=== PATIENT | female | born 1985 | race Caucasian/White ===

== ENCOUNTER 2021-10-17 05:40 | Day surgery (SDC) | payer OTHER ==
[~2021-10-17] VITALS: Ht 165.1 cm; Wt 78.2 kg
[~2021-10-17 05:40] MED LIST: LEVOTHYROXINE150 MC1 PO
--- NOTE | 2021-10-17 09:55 | NUR ---
10/17/21 0955 Amanda Garrett 0920-PT TO PACU IN SUPINE POSITION. PT RESPONSIVE BUT DOES NOT FOLLOW COMMANDS. ORAL AIRWAY IN PLACE. BREATHING EASY AND UNLABORED. SPO2 >95% ON 8 L O2 VIA SIMPLE MASK. 0923- PT RESPONDS TO VERBAL AND TACTILE STIMULI. PT FOLLOWS COMMANDS. ORAL AIRWAY REMOVED. BREATHING EASY AND UNLABORED. SPO2 >95% ON 6 L O2 VIA SIMPLE MASK. 0930- PT AWAKEN ON AND OFF. BREATHING EASY AND UNLABORED. SPO2 >95%. O2 TITRATED DOWN TO ROOM AIR. PT REQUESTING HOB LOWERED. PT ENCORUAGED TO TAKE DEEP BREATHS. 0938- LAB AT BEDSIDE TO DRAW HEMOGRAM. PT TALKING WITH MD. BREATHING EASY AND UNLABORED. SPO2 >95% ON ROOM AIR. PT REPORTS PAIN 5/10 CRAMPY. PT REQUESTING TYLENOL. PT EDUCATED ABOUT PONV AND POC FOR PACU 0947- PT AWAKE ON AND OFF. BREATHING EASY AND UNLABORED. SPO2 >95% ON ROOM AIR. PT REQUESTING WATER. 0955-PT TOLERATING PO WELL. PT REQUESTING MORE WATER. PT SLEEPING ON AND OFF. SPO2 >95% ON ROOM AIR.
--- NOTE | 2021-10-17 10:14 | NUR ---
PATIENT IS DROWSY. IVF INFUSING. IV SITE IS PATENT. PATIENT COMPLAINS OF PAIN 4/10 CRAMPING AT SURGICAL SITE. RENNY PAD CLEAN, DRY AND INTACT. BREATHING EQUAL AND UNLABORED. OXYGEN SATURATIONS ARE ABOVE 95%. PATIENT IS DRINKING WATER. AT BEDSIDE. NO QUESTIONS AT THIS TIME. CALL LIGHT WITHIN REACH NO FUTHER NEEDS.
--- NOTE | 2021-10-17 11:00 | NUR ---
PT RESTING IN BED AND AT BEDSIDE, PT GRIMACING AND REPORTS CRAMPING PAIN 4-10. PAIN MEDICATION GIVEN. HEAT PACK GIVEN PER REQUEST, EDUCATION GIVEN. PT DENIES ANY OTHER CONCERNS AT THIS TIME.
--- NOTE | 2021-10-17 11:51 | NUR ---
1135-PATIENT UP TO RESTROOM WITH 1 RN ASSIST. GAIT STEADY. PATIENT TOLERATED WELL. PATIENT VOIDED 300ML. 1140-PATIENT BACK TO ROOM. PATIENT LAYING ON LEFT SIDE. RESP EVEN AND UNLABORED. RATES PAIN 3/10. DENIES NAUSEA. SMALL AMOUNT OF RED DRAINAGE. PATIENT HAS RENNY PAD IN PLACE. PARTNER AT BEDSIDE.
--- NOTE | 2021-10-17 12:46 | NUR ---
PT UP ON EDGE OF BED, PT REPORT NAUSEA. MEDICATION GIVEN. VSS. PT REQUEST TO LAY BACK DOWN. PLAN OF CARE DISUCSSED.
--- NOTE | 2021-10-17 12:47 | NUR ---
PT REPORTS FEELING BETTER AFTER LAYING DOWN. EMESIS BAG GIVEN.
--- NOTE | 2021-10-17 13:19 | NUR ---
DC INSTRUCTIONS GIVEN, HOB INCREASED. PT EATING CRACKERS PER REQUEST. PT REPORTS READINESS TO DC. PT GETTING DRESSED AND REPORTS "I FEEL MUCH BETTER." PAPERWORK WITH RX GIVEN AND ALL QUESTIONS ANSWERED.
--- NOTE | 2021-10-17 13:30 | NUR ---
PT DC VIA WC WITH ALL BELONGINGS. PAPERWORK AND RX WITH .
--- NOTE | 2021-10-20 07:48 | OR ---
[facility] [place] [facility] [address] [place], [place] [address] Signed DATE OF OPERATION: 10/17/2021 SURGEON: Galina Jose MD PREOPERATIVE DIAGNOSIS: Cervical intraepithelial neoplasia 3. POSTOPERATIVE DIAGNOSIS: Cervical intraepithelial neoplasia 3, pending pathology. PROCEDURE: Cone biopsy with endocervical curettage. ANESTHESIA: General LMA. ESTIMATED BLOOD LOSS: 300 mL. DRAINS: None. INDICATIONS AND FINDINGS: The patient is a 36-year-old female, who was recently diagnosed with CECILIA 3 with a positive ECC on colposcopy after an abnormal Pap smear. At the time of surgery, exam under anesthesia revealed a normal-size uterus and no adnexal masses. On Lugol's staining, there was nonstaining area posteriorly, but otherwise everything appeared normal. DESCRIPTION OF PROCEDURE: The patient was prepped and draped in the dorsal lithotomy position. An open-sided speculum was placed. Angle sutures of 0 chromic were placed in a tkwity-ch-xatik manner at 3 and 9 o'clock. The cervix was then stained with Lugol's. There was a nonstaining area posteriorly. The anterior lip was grasped with a tenaculum. The knife was then used to circumscribe the cervix from 3 o'clock counterclockwise to 3 o'clock. The specimen was removed sharply and marked at the 12 o'clock position. Following this, bleeding points were treated with cautery with some improvement in the bleeding. There was some brisk bleeding inferiorly at approximately 4 o'clock and uzmigt-ni-twxch sutures using the 0 chromic were placed with improvement in this bleeding. ECC was then done with a small amount of tissue found and sent separately. There continued to be Electronically Signed By: GALINA JOSE MD 10/20/21 0748 PATIENT NAME: MANUEL VALENZUELA OPERATIVE REPORT DATE OF : [birth year] REPORT #: [id number] PHYSICIAN: GALINA JOSE MD PCP: DANYEL GLOVER MD REPORT IS CONFIDENTIAL AND NOT TO BE RELEASED WITHOUT AUTHORIZATION [facility] [place] [facility] [address] [facility] [place] [address] Signed some bleeding near the 9 o'clock position on the cervix, which was not really responding well to cautery. Several zttukl-mi-drhpx sutures were placed in this area using the 0 chromic, again with marginal control of bleeding. Additional lkvqsx-yy-dohpl sutures were placed at the 3 and 9 o'clock and these were placed a little bit more deeply to help control the paracervical vessels. A ghjmhy-se-vsqaq was placed at 12 o'clock and 6 o'clock as well. Following this, there continued to be some bleeding and blanket suture was done circumferentially around the entire cervix. At this point, hemostasis was significantly improved. The base was treated with Monsel's solution. Because of the difficulty controlling the bleeding, FloSeal was also placed at the base of the cone and this was followed by Gel-Foam. This was held in place with a suture from 12 to 6 o'clock placed superficially with a 0 chromic. Following this, observation was continued. There was no evidence of any ongoing bleeding. The procedure was terminated with removal of the instruments. The patient was taken to the recovery room in good condition. She remained stable throughout the whole procedure. All sponge and needle counts were correct. Galina Jose MD PJW/MODL /[id number] cc: [facility] Copies: ~ Electronically Signed By: GALINA JOSE MD 10/20/21 0748 PATIENT NAME: MANUEL VALENZUELA OPERATIVE REPORT DATE OF : [birth year] REPORT #: [id number] PHYSICIAN: GALINA JOSE MD PCP: DANYEL GLOVER MD REPORT IS CONFIDENTIAL AND NOT TO BE RELEASED WITHOUT AUTHORIZATION
--- NOTE | 2021-10-27 15:39 | PATH ---
[facility] [address] [place], [place] [address] Signed SPECIMEN(S): A ENDOCERVICAL CURETTINGS SPECIMEN(S): B CERVICAL CONE BIOPSY SPECIMEN SOURCE: A. ENDOCERVICAL CURETTINGS B. CERVICAL CONE BIOPSY CLINICAL HISTORY: Abnormal Pap, colposcopy with biopsy revealed CECILIA 3 with + ECC. Carcinoma in situ of ectocervix. FINAL PATHOLOGIC DIAGNOSIS: A. Endocervix, curettage: - Endocervical mucosa, detached endocervical glands, and squamous epithelium with no histopathologic abnormality. - Rare, detached proliferative appearing endometrial glands. B. Cervix, cone biopsy: - High-grade squamous intraepithelial lesion (HSIL, CECILIA 3) with foci suspicious for superficial stromal invasion, see Comment. - HSIL is focally present at inked/cauterized ectocervical margin. - Endocervical margin negative for dysplasia. COMMENT: Regarding specimen B: Foci are identified which are highly suspicious for superficial/early stromal invasion. This case will be sent to [facility] for consultation regarding this finding and the results reported in an addendum. NAL:cml:C1NR MICROSCOPIC EXAMINATION: Histologic sections of all submitted blocks are examined by light microscopy. These findings, together with the gross examination, support the pathologic diagnosis. GROSS DESCRIPTION: Two specimens are received in two containers, labeled "KA." A. The specimen, labeled "KA, A," and designated on the requisition "ECC," is received in formalin and consists of multiple fragments of brown-cintron soft tissue (2.0 x 0.3 x 0.1 cm in aggregate). The specimen is submitted entirely in cassette A1. PATIENT NAME: MANUEL VALENZUELA PATHOLOGY DATE OF : [birth year] REPORT #: [id number] PHYSICIAN: MARISABEL OSBORNE PCP: DANYEL GLOVER MD REPORT IS CONFIDENTIAL AND NOT TO BE RELEASED WITHOUT AUTHORIZATION [facility] [address] [place], [place] [address] Signed B. The specimen, labeled "KA, B," and designated on the requisition "cervix, suture pham 12 o'clock," is received in formalin and consists of a cervical cone (2.0 x 2.0 x 1.4 cm) with red-pink cervical mucosa and a stitch marking 12 o'clock. The ectocervical edge is inked black and the stromal margin is inked blue. The specimen is radially sectioned and submitted entirely as follows: (B1) 12 o'clock to 3 o'clock (B2) 3 o'clock to 6 o'clock (B3) 6 o'clock to 9 o'clock (B4) 9 o'clock to 12 o'clock AC (under the direct supervision of a pathologist) The Gross Description was prepared using a voice recognition system. The report was reviewed for accuracy; however, sound-alike word errors, addition and/or deletions may occur. If there is any question about this report, please contact Client Services. PERFORMING LABORATORY: The technical component was performed by [facility] [address] (CLIA# [id number]). [facility], [address] [facility] [address] [address] (CLIA# [id number]). Diagnostician: Susy Castro MD Pathologist Electronically Signed 10/27/2021 Copies: ~ PATIENT NAME: MANUEL VALENZUELA PATHOLOGY DATE OF : [birth year] REPORT #: [id number] PHYSICIAN: MARISABEL PATHOLOGY PCP: DANYEL GLOVER MD REPORT IS CONFIDENTIAL AND NOT TO BE RELEASED WITHOUT AUTHORIZATION
== END 2021-10-17 13:30 | disposition home or self-care (01) ==
LOC: DS 05:40
PROVIDERS: ATTEND Obstetrics & Gynecology
PROC: 0UBC7ZX Excision of Cervix, Via Natural or Artificial Opening, Diagnostic (ICD-10-PCS; principal; 2021-10-17 07:30)
DX: D06.1 Carcinoma in situ of exocervix (principal)
CPT/HCPCS: 36415; 85027; A9270; J0131; J1100; J1885; J2001; J2405; J2704; J2765; J3010; J7121

== ENCOUNTER 2021-12-03 06:00 | Day surgery (SDC) | payer OTHER ==
[~2021-12-03] VITALS: Ht 165.1 cm; Wt 76.4 kg
--- NOTE | ~2021-12-03 | OR ---
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 PROCEDURE: Repeat shallow cone biopsy. ANESTHESIA: General LMA. ESTIMATED BLOOD LOSS: 20 mL. DRAINS: None. INDICATIONS AND FINDINGS: The patient is a 36-year-old female, who underwent a cone biopsy about seven weeks ago for CIS with a positive ECC. On that specimen, there was a positive exocervical margin as well as thus probable microinvasion. She is having this repeated now to be sure margins are clear and that there is no invasive cancer as this would change her management. At the time of surgery, her exam under anesthesia revealed an irregular cervix consistent with her prior cone and was well healed. There was a rim of nonstaining exocervix particularly posteriorly. DESCRIPTION OF PROCEDURE: The patient was prepped and draped in the dorsal lithotomy position. An open-sided speculum was placed and then stay sutures of 0 chromic were placed at 3 and 9 o'clock in a ufpgsz-na-nfjtt manner. Following this, Lugol solution was used to stain the cervix. The anterior cervix was grasped with a single-tooth tenaculum. The knife was used to remove the exocervix fairly shallowly. The specimen did tear at 7 o'clock and this was sent separately. The specimen was obtained from 1 to 6 o'clock as well as from 7 to 12 o'clock. The base of the cone was treated with cautery. This was followed by [facility] PATIENT NAME: MANUEL VALENZUELA OPERATIVE REPORT DATE OF : [birth year] REPORT #: [id number] PHYSICIAN: GALINA JOSE MD PCP: DANYEL GLOVER MD REPORT IS CONFIDENTIAL AND NOT TO BE RELEASED WITHOUT AUTHORIZATION [facility] [address] [place], [place] [address] Draft solution. There was some bleeding at the posterior aspect and two oqsevo-eh-lhyqk sutures of 0 chromic were placed in this area with good hemostasis noted. The cone base was packed with Gel-Foam which had been moistened. The stay sutures were tied across the suture to aid in hemostasis. There was no bleeding from the prior tenaculum site. The speculum was removed and the patient was taken to the recovery room in good condition. MD PINA Hui/MODL /[id number] Copies: ~ PATIENT NAME: MANUEL VALENZUELA OPERATIVE REPORT DATE OF : [birth year] REPORT #: [id number] PHYSICIAN: GALINA JOSE MD PCP: DANYEL GLOVER MD REPORT IS CONFIDENTIAL AND NOT TO BE RELEASED WITHOUT AUTHORIZATION
--- NOTE | 2021-12-03 07:03 | NUR ---
PUPPET MAKER IN TO TALK WITH PT. PREMEDS HAVE BEEN GIVEN. UNDERWEAR OFF.
--- NOTE | 2021-12-03 08:25 | NUR ---
12/03/21 0825 Jami José 0806 PT ARRIVED IN PACU NON RESPONSIVE WITH OPA IN PLACE. 0808 PT REACTIVE. OPA REMOVED. 0810 DR AT BEDSIDE. 0815 RESTING. REU.
--- NOTE | 2021-12-03 09:08 | NUR ---
HAS EATEN CRACKERS. REQUEST TYLENOL FOR PAIN 07/10. DOESNT WANT NARCOTIC. VOIDS 350 MLS PINK URINE.
--- NOTE | 2021-12-03 09:47 | NUR ---
WHEN UP TO BR CHANGED RENNY PAD MOD RED DRAINAGE, STATES LESS THAN LAST TIME.
--- NOTE | 2021-12-03 13:07 | NUR ---
PT ALERT, ORIENTED AND SUPPORTED BY HER TREVIN. PT SEEMS INFORMED, BOTH ARE SOMEWHAT ANXIOUS. OUTLINED THE DAY, PT REQUESTED PRAYER. TREVIN WILL REMAIN FOR DC. WILL FOLLOW NEEDED
--- NOTE | 2021-12-04 12:39 | PATH ---
[facility] [address] [place], [place] [address] Signed SPECIMEN(S): A ECTOCERVIX FROM 04-07 SPECIMEN(S): B ECTOCERVIX AT 7 SPECIMEN(S): C ECTOCERVIX AT 12 SPECIMEN SOURCE: A. ECTOCERVIX FROM 04-07 B. ECTOCERVIX AT 7 C. ECTOCERVIX AT 12 CLINICAL HISTORY: Cone biopsy. "CIS of exocervix" (possible microinvasive disease). Possible exocervix margin on 1st cone. FINAL PATHOLOGIC DIAGNOSIS: A. Ectocervix from 04-07: - Benign ectocervical mucosa, negative for dysplasia. B. Ectocervix at 7 o'clock: - Benign ectocervix with focal mild chronic inflammation, negative for dysplasia. C. Ectocervix at 12 o'clock: - Benign ectocervical mucosa with focal stromal chronic inflammation and scar. - Negative for dysplasia or evidence of malignancy. COMMENT: The history of carcinoma in situ is noted. There is no evidence of residual carcinoma in situ on these sections. Sampling variation and/or prior complete removal may explain these findings. Clinical correlation with appropriate follow-up is recommended. JVR:unique:C2NR MICROSCOPIC EXAMINATION: Histologic sections of all submitted blocks are examined by light microscopy. These findings, together with the gross examination, support the pathologic diagnosis. GROSS DESCRIPTION: Three specimens are received in three containers, labeled "KA." A. The specimen, labeled "KA, A," and designated on the requisition "exocervix from 12 to 6:00," is received in formalin and consists of an unoriented, irregular cervical cone fragment measuring 1.0 x 0.7 x 0.3 cm. The os is difficult to grossly identify. The mucosal surface PATIENT NAME: MANUEL VALENZUELA PATHOLOGY DATE OF : [birth year] REPORT #: [id number] PHYSICIAN: MARISABEL PATHOLOGY PCP: DANYEL GLOVER MD REPORT IS CONFIDENTIAL AND NOT TO BE RELEASED WITHOUT AUTHORIZATION [facility] [address] [place], [place] [address] Signed is cintron and smooth with possible peripheral brown lesion. The surgical margin is inked black, is serially sectioned and entirely submitted in cassette (A1). B. The specimen, labeled "KA, B," and designated on the requisition "exocervix at 7:00," is received in formalin and consists of one cintron mucosal tissue fragment with clot material and a friable fragment measuring 0.4 x 0.3 x 0.2 cm. Specimen is entirely submitted en toto in cassette (B1). C. The specimen, labeled "KA, C," and designated on the requisition "exocervix, 7-12:00," is received in formalin and consists of an oriented partial cervical cone. With the suture set at 12:00, the partial cone measures 1.5 x 1.0 x 0.7 cm with possible small opened os measuring 0.2 cm located at the opposite aspect suture. The mucosal surface is cintron and smooth with raised, firm, nodular area measuring 0.2 cm to 12:00 margin and abutting the possible os margin (opposite aspect from suture). The surgical margin is inked black and the os is inked blue. The specimen is radially sectioned and entirely submitted as follows: Cassette Summary: (A1) 12 to opposite aspect (A2) Opposite aspect to 12:00 AT (under the direct supervision of a pathologist) The Gross Description was prepared using a voice recognition system. The report was reviewed for accuracy; however, sound-alike word errors, addition and/or deletions may occur. If there is any question about this report, please contact Client Services. PERFORMING LABORATORY: The technical component was performed by [facility], [address] [place] [id number] (CLIA# [id number]). Professional interpretation was performed by [facility], [address] [place] [address], [place] [address] (CLIA#: [id number]). Diagnostician: Kane Hitchcock MD Pathologist Electronically Signed 12/04/2021 Copies: PATIENT NAME: MANUEL VALENZUELA PATHOLOGY DATE OF : [birth year] REPORT #: [id number] PHYSICIAN: MARISABEL OSBORNE PCP: DANYEL GLOVER MD REPORT IS CONFIDENTIAL AND NOT TO BE RELEASED WITHOUT AUTHORIZATION [facility] [address] [facility] [place], [place] [address] Signed ~ PATIENT NAME: MANUEL VALENZUELA PATHOLOGY DATE OF : [birth year] REPORT #: [id number] PHYSICIAN: MARISABEL PATHOLOGY PCP: DANYEL GLOVER MD REPORT IS CONFIDENTIAL AND NOT TO BE RELEASED WITHOUT AUTHORIZATION
== END 2021-12-03 09:40 | disposition home or self-care (01) ==
LOC: DS 06:00
PROVIDERS: ATTEND Obstetrics & Gynecology
PROC: 0UBC7ZZ Excision of Cervix, Via Natural or Artificial Opening (ICD-10-PCS; principal; 2021-12-03 07:30)
DX: N72 Inflammatory disease of cervix uteri (principal); D06.1 Carcinoma in situ of exocervix
CPT/HCPCS: A9270; J1100; J1885; J2250; J2405; J2704; J2765; J3010; J7121

== ENCOUNTER 2022-01-21 06:00 | Day surgery (SDC) | payer OTHER ==
[~2022-01-21] VITALS: Ht 165.1 cm; Wt 76.2 kg
--- NOTE | 2022-01-21 09:25 | NUR ---
01/21/22 09 Jami José 0909 PT ARRIVED IN PACU SLEEPY WITH NO C/O'S. MOLINA IN PLACE WITH BRIGHT YELLOW URINE PRESENT. 914 C/O ABD PAIN 06/12. DECLINED PAIN MED AT THIS TIME.
--- NOTE | 2022-01-21 10:19 | NUR ---
0945: PT BACK TO DS TREATMENT ROOM FROM PACU VIA STRETCHER. PT AWAKE ON ARRIVAL AND RATES PAIN 2/10 AND "PERIOD CRAMPS." PT DENIES NAUSEA AND WOULD LIKE SOMETHING TO DRINK, PROVIDED ICED WATER. PT TOLERATES 300 MLS WATER WITH NO PROBLEM AND STATES URGE TO VOID. PT HOB RAISED AND PT DENIES ANY DIZZINESS OR NAUSEA WITH POSITION CHANGE, DANGLES LEGS PRIOR TO STANDING. PT AMBULATES TO BATHROOM STEADY WITH RN ASSIST, ABLE TO VOID APPROX 50 MLS CONCENTRATED BRIGHT YELLOW URINE. PT PROVIDED MESH PANTIES/RENNY PAD AND BACK TO STRETCHER. PT STATES FEELING HUNGRY AND PROVIDED PUDDING AND JELLO, TOLERATES BOTH WELL. PT SPOUSE AT BEDSIDE, CALL LIGHT WITHIN REACH AND ENCOURAGED TO USE WITH ANY NEEDS. 1015: PT USES CALL LIGHT AND REQUESTS TO HAVE HOB LOWERED TO REST AND PROVIDED WARM BLANKET. SPOUSE AND CALL LIGHT REMAIN IN PLACE.
[2022-01-21] MEDS ORDERED: IBUPROFEN800 MG PO (11:04)
[2022-01-21] MEDS ORDERED: PERCOCET 5-3251 EACH PO (11:05)
[2022-01-21] MEDS ORDERED: ONDANSETRON ODT8 MG PO (11:05)
--- NOTE | 2022-01-21 11:40 | NUR ---
1045: PEERED THROUGH CLOSED GLASS DOOR, PT RESTING ON LEFT SIDE WITH EYES CLOSED AND EVEN RESPIRATIONS. 1100: BACK TO ASSESS PT AND SHE WAKES WITH OPENING OF DOOR. PT CONT TO DENY ANY NAUSEA AND WOULD LIKE LUNCH, PROVIDED MENU. ICED WATER REFILLED AT THIS TIME. PT CONT TO RATE PAIN 2/10 AND TOLERABLE. SPOUSE REMAINS IN ROOM AT BEDSIDE WITH CALL LIGHT IN REACH.
--- NOTE | 2022-01-21 12:03 | NUR ---
LUNCH ARRIVES AND PT HOB RAISED, SITTING UPRIGHT. PT CONT TO DENY ANY NAUSEA AND RATES PAIN 2/10 AND "A LITTLE CRAMPY" WHEN ASKED. PT SPOUSE AT BEDSIDE, CALL LIGHT WITHIN REACH. DC CRITERIA EXPLAINED TO PT, WOULD LIKE PT TO VOID LARGER QUANTITY PRIOR TO DC.
--- NOTE | 2022-01-21 12:48 | NUR ---
1235 WAS INSTRUCTED ABOUT SCOPALOMINE PATCH.
--- NOTE | 2022-01-24 18:06 | OR ---
[facility] [address], [place] [address] Signed DATE OF OPERATION: 01/21/2022 SURGEON: Galina Jose MD VEGETABLE TESTER: Osmany Hurley M.D. PREOPERATIVE DIAGNOSIS: Microinvasive cancer of the cervix. POSTOPERATIVE DIAGNOSIS: Microinvasive cancer of the cervix. PROCEDURES: 1. Total laparoscopic hysterectomy and bilateral salpingectomy. 2. Cystoscopy. ANESTHESIA: General ET. ESTIMATED BLOOD LOSS: 25 mL. DRAINS: Lambert catheter. INDICATIONS AND FINDINGS: The patient is a 36-year-old female who was recently diagnosed with microinvasive cervical cancer. Margins were clear at her cone. It is recommended she undergo hysterectomy as she has completed her childbearing. At the time of surgery, exam under anesthesia revealed an irregular cervix as she has undergone two prior cone biopsies. The uterus itself was normal size. The tubes and ovaries were normal. DESCRIPTION OF PROCEDURE: The patient was prepped and draped in the dorsal lithotomy position. A weighted speculum was placed. The anterior lip of the cervix was visualized and grasped with a single-tooth tenaculum. The cavity was sounded to 9 cm. The endocervical canal was then dilated and the VCare then placed with the balloon inflated at the fundus. The tenaculum and speculum removed and the cup was fitted over the cervix and a locking cap fitted into place. Following this, attention was directed to the abdomen. The Electronically Signed By: GALINA JOSE MD 01/24/22 1806 PATIENT NAME: MANUEL VALENZUELA OPERATIVE REPORT DATE OF : 83 REPORT #: [id number] PHYSICIAN: GALINA JOSE MD PCP: DANYEL GLOVER MD REPORT IS CONFIDENTIAL AND NOT TO BE RELEASED WITHOUT AUTHORIZATION [facility] [address], [place] [address] Signed infraumbilical area was injected with 0.5% Marcaine plain. An incision was made with a knife. Each layer was serially elevated and incised until the fascia was opened and identified. Stay sutures of 0-Vicryl were placed on the fascia. The peritoneum was opened bluntly and the Sterling cannula placed and tied into place and the balloon inflated. Placement of the scope confirmed proper positioning. The pelvis was visualized and the planned procedure appeared appropriate. The secondary ports were then placed. These were placed laterally and slightly below the level of the umbilicus. Each of these areas were transilluminated, injected with the Marcaine, incised with the knife and the trocar placed under direct vision. The left-sided port was a 5 mm port. The right side was the Veress needle and the expanding port. Following this, the patient's left tube was grasped and the LigaSure device was used to serially coagulate and divide the mesosalpinx from the fimbriated into the cornu and divided. It was retrieved through the 8 mm port. The patient's right tube was then removed in the same manner. Attention was redirected to the left and the left utero-ovarian pedicle and round ligament were serially coagulated and divided as well. Following this, the anterior leaf of the peritoneum could be incised allowing for development of a partial bladder flap. The peritoneum was taken down posteriorly as well. The uterine vessels were then skeletonized and coagulated multiple times and divided. Further dissection was done both posteriorly and anteriorly. Following this, attention was directed to the patient's right. The utero-ovarian pedicle and round ligament were again serially coagulated and divided. The anterior leaf of the peritoneum was then incised completing the bladder flap. The peritoneum was taken down posteriorly as well. The uterine vessels were skeletonized and coagulated multiple times and divided. Further dissection was done both posteriorly and anteriorly. At this point, it was felt that the specimen could be removed. The Sonicision device was used to separate the specimen from the vaginal cuff. This was begun posteriorly at the patient's right uterosacral ligament, run around posteriorly to the left and anteriorly and restarted posteriorly at the right uterosacral ligament and taken around on the right side completing the incision. The specimen was then retrieved intact vaginally. The vaginal canal was packed with a glove with a wet lap tape to allow the pneumoperitoneum to re-accumulate. The abdomen was then copiously irrigated and inspected. There was some bleeding points around the left uterine vessel areas and these were coagulated using the LigaSure device. Following this, the cuff appeared to be hemostatic. The vaginal cuff was then closed using the Endo stitch beginning at the patient's right uterosacral ligament, taking care to incorporate the vaginal mucosa anteriorly and posteriorly and running to the patient's left uterosacral ligament and back to the center. Further irrigation was done and a good hemostasis was noted. There was a large raw area, however, and Tisseel was sprayed over the vaginal cuff and the raw areas to assure hemostasis. The instruments removed from the abdomen after allowing as much CO2 as possible to escape. The fascial incision was re-identified and closed with running suture of 0-Vicryl. The stay sutures were tied across as well. The skin incisions were closed with subcuticular sutures of 3-0 Vicryl Rapide. Attention was directed down Electronically Signed By: GALINA JOSE MD 01/24/22 3056 PATIENT NAME: MANUEL VALENZUELA OPERATIVE REPORT DATE OF : 83 REPORT #: [id number] PHYSICIAN: GALINA JOSE MD PCP: DANYEL GLOVER MD REPORT IS CONFIDENTIAL AND NOT TO BE RELEASED WITHOUT AUTHORIZATION [facility] [address], [place] [address] Signed below and the vaginal pack was removed. The Lambert catheter was then removed and cystoscopy was done. She had received IV fluorescein. The bladder was evaluated and there was no evidence of any trauma. Both ureteral orifices were easily identified with free spill of clear urine bilaterally. Following this, the bladder was drained and the Lambert catheter replaced. The procedure was terminated. All sponge and needle counts were correct. She tolerated the procedure well and was taken to the recovery room in good condition. Galina Jose MD PJW/MODL /[id number] cc: Dr. Osmany Hurley Copies: ~ Electronically Signed By: GALINA JOSE MD 01/24/22 1806 PATIENT NAME: MANUEL VALENZUELA OPERATIVE REPORT DATE OF : 83 REPORT #: [id number] PHYSICIAN: GALINA JOSE MD PCP: DANYEL GLOVER MD REPORT IS CONFIDENTIAL AND NOT TO BE RELEASED WITHOUT AUTHORIZATION
--- NOTE | 2022-01-26 13:05 | PATH ---
[facility] [address] [place], [place] [address] Signed SPECIMEN(S): A UTERUS, CERVIX AND FALLOPIAN TUBES SPECIMEN SOURCE: A. UTERUS, CERVIX AND FALLOPIAN TUBES CLINICAL HISTORY: Carcinoma in situ of exocervix. Cervical high-risk HPV test positive, microinvasive cervical CA. TLH, BS, cysto. FINAL PATHOLOGIC DIAGNOSIS: Uterus, cervix and fallopian tubes: - Endocervix and ectocervix with biopsy site changes, negative for residual high grade squamous intraepithelial lesion or evidence of invasive malignancy. - Benign secretory and interval endometrium, negative for hyperplasia or atypia. - Benign bilateral oviducts, negative for hyperplasia or atypia. - See comment. COMMENT: The patient's history of high grade squamous intraepithelial lesion with areas focally suspicious for superficial invasion are note. There is no evidence of residual high grade squamous intraepithelial lesion on this sample and the ectocervical margins show benign ectocervical epithelium negative for dysplasia. JVR:carrie:[id number] MICROSCOPIC EXAMINATION: Histologic sections of all submitted blocks are examined by light microscopy. These findings, together with the gross examination, support the pathologic diagnosis. GROSS DESCRIPTION: The specimen, labeled "A, K, per the requisition uterus, cervix, bilateral fallopian tubes," is received in formalin and consists of 98 g, 9.4 cm (fundus to external os) x 5.6 cm (cornu to cornu) x 4.5 (anterior to posterior) uterus with attached 3.4 x 3.3 x 3.2 cm cervix and two detached nondesignated fimbriated fallopian tubes (short fallopian tube: 7.1 cm in length x 0.5 cm in average diameter and long fallopian tube: 8.1 cm in length x 0.5 cm in average diameter). The uterine serosa is cintron-stout and smooth. The ectocervical mucosa is stout-purple and smooth to wrinkled surrounding PATIENT NAME: MANUEL VALENZUELA PATHOLOGY DATE OF : 83 REPORT #: [id number] PHYSICIAN: MARISABEL PATHOLOGY PCP: DANYEL GLOVER MD REPORT IS CONFIDENTIAL AND NOT TO BE RELEASED WITHOUT AUTHORIZATION [facility] [address], [place] [address] Signed a 0.8 cm in diameter patulous os. The cauterized ectocervical stroma is inked anterior-blue and posterior-black. The cervix is truncated to reveal a 3.12 m in length endocervical canal lined with cintron to mildly hemorrhagic in smooth ectocervical mucosa exuding the usual herringbone pattern. The cervix is serially sectioned in a clockwise fashion to reveal to cloudy Nabothian cysts, measuring up to 0.4 cm in greatest dimension. No definitive cervical mass lesions are identified. The uterus is bivalved into anterior and posterior to reveal the triangular endometrial cavity to measure 4.3 cm (fundus to internal os) x 2.8 cm (cornu to cornu). The endometrium is hemorrhagic and soft to slightly friable, consistent with a possible prior ablation measuring up to 0.2 cm in thickness. The myometrium is cintron-pink and trabeculated, measuring up to 2.6 cm in thickness. No polyps, nodules, or endo-myometrial masses are identified. The serosa for both fallopian tubes is purple-stout and smooth to slightly ragged with minimal fibrous adhesions and multiple clear fluid-filled paratubal cysts, measuring up to 0.4 cm in greatest dimension. Sectioning of the fallopian tubes reveals cintron-stout soft to slightly edematous stellate to dilated lumens filled with brown thin fluid. No inner lesions are noted. The cervix is entirely submitted and solar sales representative and assessor sections of the remaining specimen are submitted as follows: A1-A7: Anterior cervix 12:00-3:00 quadrant (bisected contiguous sections, stroma-blue DIRK-green) A8-A11: Posterior cervix 3:00-6:00 quadrant (bisected contiguous sections, stroma-black DIRK-green) A12-A16: Posterior cervix 6:00 to 9:00 quadrant (bisected contiguous sections, stroma-black DIRK-green) A17-A22: Anterior cervix 9:00 to 12:00 quadrant (bisected contiguous sections, stroma-blue DIRK-green) A23: Anterior endomyometrium, full-thickness sections A24: Posterior endomyometrium, full-thickness sections A25: Right fallopian tube A26: Left fallopian tube CA (under the direct supervision of a pathologist) The Gross Description was prepared using a voice recognition system. The report was reviewed for accuracy; however, sound-alike word errors, addition and/or deletions may occur. If there is any question about this report, please contact Client Services. PATIENT NAME: MANUEL VALENZUELA PATHOLOGY DATE OF : 83 REPORT #: [id number] PHYSICIAN: MARISABEL OSBORNE PCP: DANYEL GLOVER MD REPORT IS CONFIDENTIAL AND NOT TO BE RELEASED WITHOUT AUTHORIZATION [address] [address] Signed PERFORMING LABORATORY: The technical component was performed by [facility], [address] [place] [id number] (CLIA# [id number]). Professional interpretation was performed by [facility], [address] [place] [address], [place] [address] (CLIA#: [id number]). Diagnostician: Kane Hitchcock MD Pathologist Electronically Signed 01/26/2022 Copies: ~ PATIENT NAME: JULISA VALENZUELAN MIC PATHOLOGY DATE OF : 83 REPORT #: [id number] PHYSICIAN: MARISABEL PATHOLOGY PCP: DANYEL GLOVER MD REPORT IS CONFIDENTIAL AND NOT TO BE RELEASED WITHOUT AUTHORIZATION
== END 2022-01-21 12:35 | disposition home or self-care (01) ==
LOC: DS 06:00
PROVIDERS: ATTEND Obstetrics & Gynecology
PROC: 0UT94ZZ Resection of Uterus, Percutaneous Endoscopic Approach (ICD-10-PCS; principal; 2022-01-21 07:30)
PROC: 0UT74ZZ Resection of Bilateral Fallopian Tubes, Percutaneous Endoscopic Approach (ICD-10-PCS; 2022-01-21 07:30)
DX: D06.1 Carcinoma in situ of exocervix (principal); Z80.0 Family history of malignant neoplasm of digestive organs; Z83.49 Family history of other endocrine, nutritional and metabolic diseases; I10 Essential (primary) hypertension; E89.0 Postprocedural hypothyroidism; N39.3 Stress incontinence (female) (male); I05.9 Rheumatic mitral valve disease, unspecified
CPT/HCPCS: 00840; J0690; J1100; J1170; J1644; J1885; J2001; J2250; J2405; J2704; J2765; J3010; J7121